=== PATIENT | female | born 1975 | race Caucasian/White ===

== ENCOUNTER → 2024-08-17 15:24 | Outpatient (REF) | payer OTHER, SELFPAY | LOC: WDC 15:24 | PROVIDERS: ATTENDING PHYSICIAN Family Medicine | DX: Z12.31 Encounter for screening mammogram for malignant neoplasm of breast (principal) | CPT/HCPCS: 77063; 77067 ==

== ENCOUNTER 2025-04-23 06:32 | Outpatient (RCR) | payer OTHER, SELFPAY | END 2025-04-23 23:59 | disposition home or self-care (01) | LOC: RPT 06:32 | PROVIDERS: ATTENDING PHYSICIAN Family Medicine | DX: H81.12 Benign paroxysmal vertigo, left ear (principal); Z73.6 Limitation of activities due to disability | CPT/HCPCS: 97112; 97162 ==